=== PATIENT | female | born 1955 | race American Indian/Alaskan Native ===

== ENCOUNTER 2018-07-18 09:58 | Day surgery (SDC) | payer MEDICARE ==
[2018-07-18] MEDS ORDERED: NACL 0.9% 1000 ML 1,000 ML IV SCH (11:00)
[2018-07-18] MEDS ORDERED: WATER FOR IRRIG STERILE IR ONE (11:33)
--- NOTE | 2018-07-18 11:38 | Anesthesia Consultation ---
Anesthesia Consult and Med Hx Date of service: 07/18/18 - Airway Anesthetic Teeth Evaluation: Edentulous ROM Head & Neck: Adequate Mental/Hyoid Distance: Adequate Mallampati Class: Class II Intubation Access Assessment: Probably Good - Pulmonary Exam CTA: Yes - Cardiac Exam Cardiac Exam: RRR - Pre-Operative Health Status ASA Pre-Surgery Classification: ASA3 Proposed Anesthetic Plan: MAC - Pulmonary Hx Smoking: Yes (former ) COPD: Yes Hx Sleep Apnea: Yes - Cardiovascular System Hx Hypertension: Yes (chf) Hx Heart Attack/AMI: Yes Hx Pacemaker: Yes Hx Internal Defibrillator: Yes - Central Nervous System CVA: Yes (tia 30 yrs ago, 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
--- NOTE | 2018-07-18 11:39 | Anesthesia Day of Surgery ---
Anesthesia Day of Surgery - Day of Surgery Patient Examined: Yes Patient H&P Reviewed: Yes Patient is NPO: Yes Cardiac Clearance: Yes
[2018-07-18] MEDS ORDERED: DIPRIVAN 10 MG/ML IV ONE ×2 (11:50)
--- NOTE | 2018-07-18 12:13 | Post Operative Note ---
Date of procedure: 07/18/18 Pre-op diagnosis: dyspepsia, screening for colon cancer Post-op diagnosis: other (gastritis. colon polyps x 3, tics, hemorrhoids) Findings: EGD: erythematous gastric mucosa in antrum. gastric bx's obtained to r/o HP. otherwise normal upper endoscopy. Colonoscopy: colon polyps x 3 removed with cold forceps biopsy, tics, hemorrhoids Procedure: EGD with biopsies Colonsocopy with biopsy Anesthesia: MAC Surgeon: DORENE MCFADDEN Estimated blood loss: minimal Pathology: list (jar A - gastric bx's, jar b - transverse colon polyp, jar c - rectal polyp) Specimen disposition: to lab Condition: stable Disposition: same day
--- NOTE | 2018-07-18 12:16 | Operative Report ---
Operative Report Operative Report: Colonoscopy Procedure Note with Cold biopsy forceps Date of procedure: 07/18/2018 Endoscopist: Kartik Peña Pre-op diagnosis: screening colonoscopy Post-op diagnosis: colon poyps x 3, diverticulosis, internal hemorrhoids Anesthesia: MAC Complications: No immediate complications Estimated blood loss: minimal Procedure: After consent was obtained, the patient was placed in the left lateral decubitus position. The fujinon colonoscope was inserted into the patient's rectum under direct vision, and advanced to the cecum without difficulty. The patient tolerated the procedure well. The views of the mucosa were good. The quality of prep was fair. The patient's vital signs were monitored continuously throughout the procedure. Findings: There were two, 2-3 mm sessile polyps in the transverse colon. The polyps were removed and retrieved with cold biopsy forceps. There was a 2 mm sessile polyp in the rectum. The polyp was removed and retrieved with cold biopsy forceps. There were scattered small and medium sized diverticula in the colon. Internal hemorrhoids were visualized on retroflexion view. Impression: 1. Colon polyps removed as above 2. Diverticulosis 3. Internal hemorrhoids Recommendations: -follow-up pathology -high fiber diet daily -repeat colonoscopy in 3-5 years for surveillance
--- NOTE | 2018-07-18 12:18 | Operative Report ---
Operative Report Operative Report: Esophagogastroduodenoscopy Procedure Note with Biopsies Date of procedure: 07/18/2018 Endoscopist: Kartik Peña Pre-op diagnosis: Dyspepsia Post-op diagnosis: Erythematous gastric mucosa in the antrum Anesthesia: MAC Complications: No immediate complications Estimated blood loss: minimal Procedure: After consent was obtained, the patient was placed in the left lateral decubitus position. The fujinon endoscope was inserted into the patient 's mouth under direct vision, and advanced into the 2nd portion of the duodenum without difficulty. The patient tolerated the procedure well. The views of the mucosa were good. Patient's vital signs were monitored continuously throughout the procedure. Findings: The esophagus appeared normal. There was moderate erythematous mucosa in the antrum. Otherwise, the stomach appeared normal. Biopsies were obtained to rule out H pylori. The duodenum appeared normal. Impression: 1. Gastritis. Biopsies obtained. 2. Otherwise, the upper endoscopy was normal. Recommendations: -follow-up pathology -return to GI clinic as scheduled
[2018-07-18 12:43] VITALS: BP 117/72
== END 2018-07-18 09:59 | disposition home or self-care (01) ==
LOC: GIO 09:58
PROVIDERS: ATTEND Internal Medicine Gastroenterology
DX: Z12.11 Encounter for screening for malignant neoplasm of colon (principal); D12.3 Benign neoplasm of transverse colon; K62.1 Rectal polyp; K21.9 Gastro-esophageal reflux disease without esophagitis; R11.0 Nausea; K57.30 Diverticulosis of large intestine without perforation or abscess without bleeding; K64.8 Other hemorrhoids; K30 Functional dyspepsia; I50.9 Heart failure, unspecified; I11.0 Hypertensive heart disease with heart failure; J44.9 Chronic obstructive pulmonary disease, unspecified; G47.30 Sleep apnea, unspecified; E11.9 Type 2 diabetes mellitus without complications; Z98.890 Other specified postprocedural states; Z87.891 Personal history of nicotine dependence; Z87.19 Personal history of other diseases of the digestive system; Z90.49 Acquired absence of other specified parts of digestive tract; Z98.51 Tubal ligation status; Z86.73 Personal history of transient ischemic attack (TIA), and cerebral infarction without residual deficits; Z88.6 Allergy status to analgesic agent; Z88.8 Allergy status to other drugs, medicaments and biological substances; Z79.899 Other long term (current) drug therapy
CPT/HCPCS: 43239; 45380; 82962; 88305; 88342; J2704; J7030